=== PATIENT | female | born 1965 | race Asian ===

== ENCOUNTER → 2021-01-21 | Outpatient (CLI) | payer BC | LOC: MAMMO 08:52 | PROVIDERS: ATTEND Specialist | DX: Z12.31 Encounter for screening mammogram for malignant neoplasm of breast (principal); Z13.820 Encounter for screening for osteoporosis; Z78.0 Asymptomatic menopausal state | CPT/HCPCS: 77067; 77080 ==

== ENCOUNTER → 2022-03-13 | Outpatient (CLI) | payer BC | LOC: MAMMO 08:30 | PROVIDERS: ATTEND Specialist | DX: Z12.31 Encounter for screening mammogram for malignant neoplasm of breast (principal) | CPT/HCPCS: 77067 ==